=== PATIENT | female | born 1955 | race Caucasian/White ===

== ENCOUNTER 2017-04-27 13:15 | Outpatient (RCR) | payer MEDICAID ==
[~2017-04-27 13:15] MED LIST: CLEOCIN HC150 MG/CAP PO; DETROL; DILAUDID 4MG TAB4 MG PO; FLEXERIL 1010 MG/TAB PO; FLEXERIL10 MG PO; HYDROCODONE/APAP; LORTAB 10/500 51 TAB; METHOCARBAMOL500 MG PO; NORCO 325 MG-51 TAB PO; NORCO 325 MG-7.1 TAB PO; PERCOCET 325 MG1 TA2 PO; PHENTERMINE37.5 M1 PO; VITAMIN D5000 IU PO
== END 2017-05-21 14:10 | disposition still patient (30) ==
LOC: WSPT 13:15
DX: M54.5 Low back pain (principal)